=== PATIENT | female | born 1950 | race Caucasian/White ===

== ENCOUNTER 2016-10-27 07:55 | Day surgery (SDC) | payer MEDICARE ==
[2016-10-27] VITALS (8 sets, daily range): BP systolic 127–144; BP diastolic 60–83; PULSE 65–89; RESP 12–17; O2SAT 92–95
[~2016-10-27] VITALS: Ht 168.3 cm; Wt 115.0 kg
[~2016-10-27 07:55] MED LIST: ASPI-973 PO; CALC-761 PO; CHOL100043 PO; CeFAZolin 2 Gm/50 mL D5W IV Premix IV ONE; DOCU240C41 PO; FEXO-43 PO; FISH1CAP15 PO; FLUT16SP NS; IBUP200C PO; KEN1C EXT; Lactated Ringer's 1,000 ML IV SCH; PROP1DRO OP; RANI150T11 PO
[2016-10-27] MEDS ORDERED: Dexamethasone 4 mg/mL Inj ONE ×2 (07:56)
[2016-10-27] MEDS ORDERED: Phenylephrine/NS 100 mCg/mL 10 mL Syringe IVPUSH ONE (07:56)
[2016-10-27] MEDS ORDERED: Ondansetron 2 mg/mL 2 mL Inj ONE (07:56)
[2016-10-27] MEDS ORDERED: fentaNYL-PF 50 mCg/mL 2 mL Inj ONE (07:56)
[2016-10-27] MEDS ORDERED: Propofol 10,000 mCg/mL 20 mL Inj ONE (07:56)
[2016-10-27] MEDS ORDERED: MetoCLOpramide 5 mg/mL 2 mL Inj ONE (07:56)
[2016-10-27] MEDS ORDERED: Lidocaine 2%-Epi 1:100,000 20 mL Inj INFILTRATE ONE (10:10)
[2016-10-27] MEDS ORDERED: MethylprednisoLONE Depot 40 mg/mL Inj ARTICULAR ONE (10:10)
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
[2016-10-27] MEDS ORDERED: Lactated Ringer's 1,000 ML IV SCH (10:16)
[2016-10-27] MEDS ORDERED: Lactated Ringer's 500 ML IV PRN (10:16)
[2016-10-27] MEDS ORDERED: Lactated Ringer's 1,000 ML IV ONE (10:19)
[2016-10-27] MEDS ORDERED: fentaNYL-PF 50 mCg/mL 2 mL Inj IVPUSH PRN (10:20)
[2016-10-27] MEDS ORDERED: MetoCLOpramide 5 mg/mL 2 mL Inj IVPUSH PRN (10:20)
[2016-10-27] MEDS ORDERED: Phenylephrine 10,000 mCg/mL Inj IVPUSH PRN (10:20)
[2016-10-27] MEDS ORDERED: Dexamethasone 4 mg/mL Inj IVPUSH PRN (10:20)
[2016-10-27] MEDS ORDERED: HYDROmorphone 1 mg/mL Inj IVPUSH PRN (10:20)
[2016-10-27] MEDS ORDERED: EPHEDrine Sulfate 50 mg/mL Inj IVPUSH PRN (10:20)
[2016-10-27] MEDS ORDERED: Ondansetron 2 mg/mL 2 mL Inj IVPUSH PRN (10:20)
[2016-10-27] MEDS ORDERED: Codeine-APAP 30-300 mg Tablet PO PRN (10:45)
--- NOTE | 2016-10-27 10:47 | PCM.ORTHOB ---
Immediate Operative Note Date of Service: Oct 27, 2016 Pre Operative Diagnosis Left knee degenerative medial meniscal tear Post Operative Diagnosis Same Procedure Left knee arthroscopic partial medial meniscectomy Surgeon Surgeon: Sunday Marvin MD Assistants: None Findings Left knee, medial compartment, degenerative tear of posterior horn and body of medial meniscus. 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 Partially torn anterior fibers of the anterior cruciate ligament with the majority of the ligament being stable to probing. Lateral compartment showed an intact lateral meniscus. Diffuse grade 1-2 chondromalacia primarily affecting the articular surface on the tibial side with the lateral femoral condylar weightbearing surface better preserved. No loose bodies were noted in the medial or lateral gutters. Diffuse grade 2 chondromalacia affecting the majority of the weightbearing surface of the patella. Grafts, Implants: None Complications There were no periprocedural complications identified. Condition Stable Anesthetic Administered: GA Drains: None Catheters: None Output, Estimated Blood Loss: 2 Blood Admin during surgery: No Surgical Cast or Splint: None Additional Information Tourniquet time 17 minutes Surgical Specimen Removed: No Surgical Specimen sent to Path: No Post Operative Plan The patient will be discharged from daycare surgery when protocol is met. The patient may weight-bear as tolerated beginning postop day #1. The patient should resume her preoperative knee strengthening exercises as soon as able. The patient will be seen for routine wound check in the office on or after postoperative day #5. The patient may have skin sutures removed on or after postoperative day #12. The patient should be able to resume light activities by that point. Sunday Marvin MD Oct 27, 2016 10:47
--- NOTE | 2016-10-27 10:52 | PCM.ORTHOP ---
Orthopedic Operative Report Date of Service: Oct 27, 2016 Pre Operative Diagnosis Left knee degenerative medial meniscal tear Post Operative Diagnosis Same Procedure Left knee arthroscopic partial medial meniscectomy Surgeon Surgeon: Sunday Marvin MD Assistants: None Indication for Procedure Patient is a 66-year-old woman with a four-month history of left knee pain which seemed to come on after performing some strenuous gardening where her left knee was Loaded in flexion for prolonged periods of time. Patient describes sharp catching pain on the inside of her knee which is exacerbated by twisting, turning and squatting activities. The patient's knee symptoms have not resolved with activity modification, the knee strengthening exercise program and the use of anti-inflammatory agents. Preoperative exam of the patient's left knee reveals full and stable knee range of motion with tenderness to palpation of the medial joint line and a positive Quintin sign. Preoperative MRI of the patient's left knee reveals a tear of the body and posterior horn of the medial meniscus in addition to mild to moderate tricompartmental degenerative changes. The patient presents today for left knee arthroscopic partial medial meniscectomy. Findings Left knee, medial compartment, degenerative tear of posterior horn and body of medial meniscus. 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 Partially torn anterior fibers of the anterior cruciate ligament with the majority of the ligament being stable to probing. Lateral compartment showed an intact lateral meniscus. Diffuse grade 1-2 chondromalacia primarily affecting the articular surface on the tibial side with the lateral femoral condylar weightbearing surface better preserved. No loose bodies were noted in the medial or lateral gutters. Diffuse grade 2 chondromalacia affecting the majority of the weightbearing surface of the patella. Details of Procedure The patient was brought to the OR and given a general anesthetic. She is placed in a supine position and a tourniquet was placed high about the left thigh. Left lower extremity was prepped and draped in usual sterile fashion and tourniquet was inflated to 275 mmHg. We placed 2 infrapatellar arthroscopic portals, one medial and one lateral for the scope and instruments. We instilled lactated Ringer's with epinephrine and went directly into the medial compartment. We confirmed the presence of a degenerative tear of the medial meniscus extending from the posterior horn into the body. He noted early degenerative changes on both sides of the joint. We used the arthroscopic shaver and arthroscopic basket biting forceps to debride the meniscal tear back to a stable base. We then explored the rest of the knee. We found the anterior cruciate ligament to be stable with mild, chronic- appearing fraying of some of the anterior fibers. The lateral compartment showed mild degenerative changes primarily affecting the tibial articular surface. Lateral meniscus was intact and stable to probing. The medial and lateral gutters were noted to be free of loose bodies. Patellofemoral compartment was reviewed. We found grade 2 chondromalacia affecting the majority of the undersurface of the patella. We thoroughly irrigated the knee and removed the scope and instruments. We instilled 30 mL of 2% lidocaine with 40 mg of Depo-Medrol into the knee. The arthroscopic portals were closed with interrupted 4-0 nylon sutures. Dressed with Xeroform and dry gauze dressings. Tourniquet was deflated and the patient was taken back to PACU in stable and satisfactory condition and there were no complications. The patient tolerated the procedure well. Grafts, Implants: None Complications There were no periprocedural complications identified. Condition Stable Anesthetic Administered: GA Drains: None Catheters: None Output, Estimated Blood Loss: 2 Blood Admin during surgery: No Surgical Cast or Splint: None Addtional Information Tourniquet time 17 minutes Surgical Specimen Removed: No Specimen sent to Pathology: No Post Operative Plan The patient will be discharged from daycare surgery when protocol is met. The patient may weight-bear as tolerated beginning postop day #1. The patient should resume her preoperative knee strengthening exercises as soon as able. The patient will be seen for routine wound check in the office on or after postoperative day #5. The patient may have skin sutures removed on or after postoperative day #12. The patient should be able to resume light activities by that point. copies to: Kristal Reaves; Sunday Marvin MD, Michael G.E MD Oct 27, 2016 10:52
--- NOTE | 2016-10-27 11:10 | PCM.ANEP1 ---
Post Anesthesia Phase 1 PACU Phase 1 Assessment Date of Service: Oct 27, 2016 Vital Signs Vital Signs Date Time Temp Pulse Resp B/P Pulse Ox O2 Delivery O2 Flow Rate FiO2 10/27/16 10:45 76 13 144/62 94 Room Air 10/27/16 10:43 78 12 134/67 92 Room Air 10/27/16 10:35 36.9 83 15 137/63 92 Room Air 10/27/16 08:33 36.2 89 17 140/83 95 Room Air Anesthetic Administered: GA Level of Alertness: Awake, talking CAVANAUGH's with Equal Strength: Yes Pain: No Nausea or Vomiting: No Oxygen Delivery: Room Air Lungs: Clear to Auscultation Dermatome Level: Full Sensation Sujit Lowry MD Oct 27, 2016 11:10
--- NOTE | 2016-10-27 11:10 | PCM.ANEP2 ---
Post Anesthesia Evaluation ASA/CMS Post Anesthesia VS in Patient's Normal Range?: Yes Resp Stable; Airway Patent?: Yes CV Function & Hydration Stable: Yes Mental Status Recovered?: Yes Pain control Satisfactory?: Yes N/V Control Satisfactory?: Yes Sujit Lowry MD Oct 27, 2016 11:10
[2016-10-27] MEDS ORDERED: CeFAZolin 2 Gm/50 mL D5W Duplex Bag IV ONE (11:57)
== END 2016-10-27 23:59 | disposition home or self-care (01) ==
LOC: SAS 07:55
PROVIDERS: ATTEND Orthopaedic Surgery
DX: M23.322 Other meniscus derangements, posterior horn of medial meniscus, left knee (principal); M17.12 Unilateral primary osteoarthritis, left knee; M94.262 Chondromalacia, left knee; K21.9 Gastro-esophageal reflux disease without esophagitis
CPT/HCPCS: 29881; J0690; J1030; J1100; J2370; J2405; J2765; J7120